=== PATIENT | female | born 1940 | race Caucasian/White ===

== ENCOUNTER 2016-12-06 14:15 | Emergency (ER) | payer MEDICARE, OTHER ==
[2016-12-06 14:59] VITALS: BP 210/88; PULSE 76; O2SAT 98
--- NOTE | 2016-12-06 15:15 | ERPHSYRPT ---
- History of Present Illness Time Seen by Provider: 12/06/16 15:06 Source: patient Exam Limitations: no limitations Patient Subjective Stated Complaint: pt states she is recieving chemo for liver cancer and on 12/04/16 she recieved a neupogen shot and had "no trouble." pt states she recieved a neupogen shot on 12/05/16 and "aches all over in her joints." Triage Nursing Assessment: pt flushed, warm, dry. pt able to walk to ER cot from wheelchair without difficulty. pt alert and oriented x3. Physician History: The patient is a 76-year-old female with her son complaining of all over body aches that it worsened since yesterday. She began a new cycle of Neupogen for colon cancer 2 days ago. In the past with Neupogen she hasn't had any problems. She thinks that the Neupogen shot has caused her body aches and pains. P took Alkseltzer and felt better last night. She denies any other problems. She denies shortness of breath, chest pain, nausea, vomiting, diarrhea. She is scheduled to have another Neupogen injection today but wants to wait until talking with her doctor who is on vacation for 2 weeks. Her oncologist is Dr. Oro and his nurse practitioner Roxi is taking calls at this time. Her past medical history is significant for colon cancer with partial colon resection, hypertension, and diabetes. Timing/Duration: yesterday Severity: moderate Modifying Factors: Improves With: nothing Associated Symptoms: other (body aches) Allergies/Adverse Reactions: No Known Drug Allergies Allergy (Verified 12/06/16 14:59) Home Medications: Acetaminophen 500 mg [Tylenol Extra Strength 500 mg] 500 mg PO DAILY PRN 12/18/13 [History] Hydrocodone/APAP 5/325 [[place] 5/325 mg] 1 tab PO Q4H PRN PRN 01/06/14 [ History] Multivitamin W-Minerals/Lutein [Centrum Silver Tablet] 1 tab PO DAILY 05/27/15 [ History] Pyridoxine HCl [Vitamin B-6] 100 mg PO BID 05/27/15 [History] Hx Tetanus, Diphtheria Vaccination/Date Given: Yes (unknown) Hx Influenza Vaccination/Date Given: No Hx Pneumococcal Vaccination/Date Given: No Immunizations Up to Date: Yes - Review of Systems Constitutional: No Fever, No Chills Eyes: No Symptoms Ears, Nose, & Throat: No Symptoms Respiratory: No Cough, No Dyspnea Cardiac: No Chest Pain, No Edema, No Syncope Abdominal/Gastrointestinal: No Abdominal Pain, No Nausea, No Vomiting, No Diarrhea Genitourinary Symptoms: No Dysuria Musculoskeletal: Joint Pain Skin: No Rash Neurological: No Dizziness, No Focal Weakness, No Sensory Changes Psychological: No Symptoms Endocrine: No Symptoms Hematologic/Lymphatic: No Symptoms Immunological/Allergic: No Symptoms All Other Systems: Reviewed and Negative - Past Medical History Pertinent Past Medical History: Yes Neurological History: No Pertinent History ENT History: Cataracts Cardiac History: No Pertinent History Respiratory History: No Pertinent History Endocrine Medical History: No Pertinent History Musculoskeletal History: No Pertinent History GI Medical History: GERD, Other History: No Pertinent History Psycho-Social History: No Pertinent History Female Reproductive Disorders: Abnormal Uterine Bleeding, Fibroids Other Medical History: colon cancer, with liver mets.Doing chemo tx at this time.,twice a month - Past Surgical History Past Surgical History: Yes Neuro Surgical History: No Pertinent History Cardiac: No Pertinent History Respiratory: No Pertinent History Gastrointestinal: Appendectomy, Colon Resection Genitourinary: No Pertinent History Musculoskeletal: No Pertinent History Female Surgical History: Hysterectomy Other Surgical History: bilateral oopherectomy, colonoscopy - Social History Smoking Status: Never smoker Exposure to second hand smoke: No Drug Use: none Patient Lives Alone: No - Nursing Vital Signs Nursing Vital Signs: Initial Vital Signs Temperature 97.6 F Temperature Source Oral Pulse Rate 76 Respiratory Rate 18 Blood Pressure [Right Arm] 210/88 Pain Intensity 8 - Physical Exam General Appearance: no apparent distress, alert Eye Exam: PERRL/EOMI, eyes nml inspection Ears, Nose, Throat Exam: normal ENT inspection, TMs normal, pharynx normal, moist mucous membranes Neck Exam: normal inspection, non-tender, supple, full range of motion Respiratory Exam: normal breath sounds, lungs clear, No respiratory distress Cardiovascular Exam: regular rate/rhythm, normal heart sounds, normal peripheral pulses Gastrointestinal/Abdomen Exam: soft, normal bowel sounds, No tenderness, No mass Pelvic Exam: not done Rectal Exam: not done Back Exam: normal inspection, normal range of motion, No CVA tenderness, No vertebral tenderness Extremity Exam: normal inspection, normal range of motion, pelvis stable Neurologic Exam: alert, oriented x 3, cooperative, normal mood/affect, nml cerebellar function, nml station & gait, sensation nml, No motor deficits Skin Exam: normal color, warm, dry, No rash Lymphatic Exam: No adenopathy SpO2 Interpretation: normal SpO2: 98 Oxygen Delivery: Room Air Ordered Tests: Active Orders 24 hr Category Date Time Status BMP Stat Lab 12/06/16 15:45 Completed CBC W DIFF Stat Lab 12/06/16 15:45 Completed Manual Differential NC Stat Lab 12/06/16 15:45 Completed UA W/RFX UR CULTURE Stat Lab 12/06/16 15:23 Uncollected Lab/Rad Data: Laboratory Result Diagrams 12/06/16 15:45 12/06/16 15:45 Laboratory Results 12/06/16 12/06/16 Range/Units 15:45 15:45 WBC 5.1 (4.0-10.5) K/mm3 RBC 3.27 L (4.1-5.4) M/mm3 Hgb 10.7 L (12.0-16.0) gm/dl Hct 33.6 L (35-47) % MCV 102.8 H (78-100) fl MCH 32.7 H (26-32) pg MCHC 31.8 L (32-36) g/dl RDW 15.2 H (11.5-14.0) % Plt Count 74 L (150-450) K/mm3 MPV 10.8 H (6-9.5) fl Sodium 140 (136-145) mEq/L Potassium 4.4 (3.5-5.1) mEq/L Chloride 107 (98-107) mEq/L Carbon Dioxide 25.1 (21-32) mEq/L Anion Gap 12.6 (5-15) MEQ/L BUN 16 (9-20) mg/dL Creatinine 1.32 H (0.55-1.30) mg/dl Estimated GFR 41 ML/MIN Glucose 295 H (70-110) MG/DL Calcium 8.7 (8.5-10.1) mg/dL - Progress Progress: unchanged Progress Note: 12/06/16 16:29 I discussed the patient and her condition and the laboratory findings with Roxi the nurse practitioner in Dr. Olguin office and she recommends that the patient have her Neupogen injection today as scheduled. For pain she can have [place], Tylenol, ibuprofen, and or Benadryl as needed. I informed the patient that her tumor markers have gone down from 981 to 256. The patient is to follow-up as scheduled on Sunday. Counseled pt/family regarding: lab results, diagnosis, need for follow-up - Departure Time of Disposition: 16:31 Departure Disposition: Home Clinical Impression: Musculoskeletal pain Condition: Stable Critical Care Time: No Additional Instructions: You have musculoskeletal pain caused by Neupogen injection. I discussed the findings with Roxi and she wants you to have year Neupogen injection today. Take your pain pills, Tylenol, ibuprofen, Ria-Lindon, or Benadryl as needed. Follow up on Sunday.
[2016-12-06 15:56] LABS: Mean Cell Volume 102.8 fl (78-100); Mean Corpuscular Hemoglobin 32.7 pg (26-32); Mean Platelet Volume 10.8 fl (6-9.5); Platelet Count 74 K/mm3 (150-450); Red Blood Count 3.27 M/mm3 (4.1-5.4); Red Cell Distribution Width 15.2 % (11.5-14.0); White Blood Count 5.1 K/mm3 (4.0-10.5)
[2016-12-06 16:11] LABS: ANION GAP 12.6 MEQ/L (5-15); Carbon Dioxide 25.1 mEq/L (21-32); Potassium 4.4 mEq/L (3.5-5.1)
[2016-12-06 16:47] LABS: ANISOCYTOSIS 1+; BAND 7 % (0.0-2.0); Eosinophil 1 % (0.00-3.0); Platelet Estimate DECREASED (NORMAL); Total Cells Counted 100; Toxic Granulation 1+
== END 2016-12-06 16:43 | disposition home or self-care (01) ==
LOC: ED 14:15
DX: M79.1 Myalgia (principal); I10 Essential (primary) hypertension; Z85.038 Personal history of other malignant neoplasm of large intestine
CPT/HCPCS: 36415; 80048; 85025; 99281

== ENCOUNTER 2017-08-07 16:02 | Observation (INO) | payer MEDICARE, OTHER ==
--- NOTE | 2017-08-07 17:19 | ERPHSYRPT ---
- History of Present Illness Time Seen by Provider: 08/07/17 16:56 Source: patient, family (son) Patient Subjective Stated Complaint: pt sent here by home health care pt unsure of shy, she states that she thinks its for dehydration, she also states her left leg hurts her, she is having home health care wrap them due to swelling Triage Nursing Assessment: pt alert, resp easy, skin w/d jaundince, edema to lower legs with coban dressing Physician History: CC: swelling Hx: 77 y/o patient of Dr Jorgensen/[facility]. She has hx of olon cancer with liver mets. She has bead implants in her liver. She has chronic swelling of the legs. She has had DVT and is now on lovenox. She had labs yesterday per her [facility]. Was told to come to the hospital for swelling and dehydration. No fever or chills. No other new symptoms. Severity: moderate Allergies/Adverse Reactions: No Known Drug Allergies Allergy (Verified 08/07/17 16:50) Home Medications: Acetaminophen 500 mg [Tylenol Extra Strength 500 mg] 500 mg PO DAILY PRN 12/18/13 [History] Multivitamin W-Minerals/Lutein [Centrum Silver Tablet] 1 tab PO DAILY 05/27/15 [ History] Pyridoxine HCl [Vitamin B-6] 100 mg PO DAILY 05/27/15 [History] Lisinopril 5 mg [Zestril 5 MG] 5 mg PO DAILY 05/17/17 [History] Rivaroxaban [Xarelto] 15 mg PO BID 05/17/17 [History] Hx Tetanus, Diphtheria Vaccination/Date Given: Yes (unknown) Hx Influenza Vaccination/Date Given: No Hx Pneumococcal Vaccination/Date Given: No Immunizations Up to Date: Yes - Review of Systems Constitutional: No Fever, No Chills Eyes: No Symptoms Ears, Nose, & Throat: No Symptoms Respiratory: No Cough, No Dyspnea Cardiac: Edema, No Chest Pain Abdominal/Gastrointestinal: No Abdominal Pain, No Vomiting Skin: Rash (blisters on feet treated with unna boots per [facility]) Neurological: No Focal Weakness, No Parasthesia All Other Systems: Reviewed and Negative - Past Medical History Pertinent Past Medical History: Yes Neurological History: No Pertinent History ENT History: Cataracts Cardiac History: Deep Vein Thrombosis, Hypertension Respiratory History: Lung Cancer Endocrine Medical History: No Pertinent History, Liver Disease Musculoskeletal History: No Pertinent History GI Medical History: Colorectal Cancer, GERD, Liver Cancer, Other History: No Pertinent History Psycho-Social History: No Pertinent History Female Reproductive Disorders: Abnormal Uterine Bleeding, Fibroids Other Medical History: colon cancer, with liver & lung mets.Doing chemo tx at this time.,twice a month - Past Surgical History Past Surgical History: Yes Neuro Surgical History: No Pertinent History Cardiac: No Pertinent History Respiratory: No Pertinent History Gastrointestinal: Appendectomy, Colon Resection Genitourinary: No Pertinent History Musculoskeletal: No Pertinent History Female Surgical History: Hysterectomy Other Surgical History: bilateral oopherectomy, colonoscopy - Social History Smoking Status: Never smoker Exposure to second hand smoke: No Drug Use: none Patient Lives Alone: No - Female History Hx Last Menstrual Period: psot Hx Now: No - Nursing Vital Signs Nursing Vital Signs: Initial Vital Signs Temperature 97.2 F 08/07/17 16:42 Pulse Rate 115 H 08/07/17 16:42 Respiratory Rate 18 08/07/17 16:42 Blood Pressure 142/81 08/07/17 16:42 O2 Sat by Pulse Oximetry 92 L 08/07/17 16:42 Pain Scale Pain Intensity 4 - Physical Exam General Appearance: alert, other (frail elderly lady) Ears, Nose, Throat Exam: normal ENT inspection, moist mucous membranes Neck Exam: normal inspection, non-tender, supple Respiratory Exam: normal breath sounds Cardiovascular Exam: regular rate/rhythm Gastrointestinal/Abdomen Exam: soft, other (mild discomfort), No distention Back Exam: normal inspection, normal range of motion Extremity Exam: other (edematous legs with unna boots on both lower legs) Neurologic Exam: alert, oriented x 3, cooperative Skin Exam: warm, dry SpO2 Interpretation: borderline oxygenation SpO2: 92 Oxygen Delivery: Room Air - Course Nursing assessment & vital signs reviewed: Yes - Radiology Exams cxr X-ray Interpretation: Reviewed by me (aging chest, port a cath, left effusion, right A/I) Ordered Tests: Active Orders 24 hr Category Date Time Status Clean Catch Urine Specimen STAT Care 08/07/17 18:44 Active IV Insertion STAT Care 08/07/17 17:06 Active CHEST 1 VIEW (PORTABLE) Stat Exams 08/07/17 17:10 Taken BMP Stat Lab 08/07/17 17:30 Completed CBC W DIFF Stat Lab 08/07/17 17:30 Completed Hepatic Function Panel Stat Lab 08/07/17 17:30 Completed Manual Differential NC Stat Lab 08/07/17 17:30 Completed PROTIME WITH INR Stat Lab 08/07/17 17:30 Completed UA W/RFX UR CULTURE Stat Lab 08/07/17 18:44 Ordered Lab/Rad Data: Laboratory Result Diagrams 08/07/17 17:30 08/07/17 17:30 Laboratory Results 08/07/17 08/07/17 08/07/17 Range/Units 17:30 17:30 17:30 WBC 6.2 (4.0-10.5) K/mm3 RBC 3.09 L (4.1-5.4) M/mm3 Hgb 11.1 L (12.0-16.0) gm/dl Hct 33.9 L (35-47) % MCV 109.7 H (78-100) fl MCH 35.9 H (26-32) pg MCHC 32.7 (32-36) g/dl RDW 18.0 H (11.5-14.0) % Plt Count 89 L (150-450) K/mm3 MPV 13.0 H (6-9.5) fl Segmented Neutrophils 82 H (36.0-66.0) % Lymphocytes (Manual) 13 L (24-44) % Monocytes (Manual) 5 (0.0-12.0) % Differential Comment ABNORMAL Platelet Estimate DECREASED (NORMAL) Anisocytosis 1+ INR 1.34 (0.8-3.0) Sodium 138 (136-145) mEq/L Potassium 3.4 L (3.5-5.1) mEq/L Chloride 108 H (98-107) mEq/L Carbon Dioxide 19.5 L (21-32) mEq/L Anion Gap 14.0 (5-15) MEQ/L BUN 17 (9-20) mg/dL Creatinine 1.23 (0.55-1.30) mg/dl Estimated GFR 45 ML/MIN Glucose 107 (70-110) MG/DL Calcium 7.9 L (8.5-10.1) mg/dL Total Bilirubin 1.20 H (0.2-1.0) mg/dL Direct Bilirubin 0.66 H (0.0-0.2) MG/DL AST 45 H (15-37) U/L ALT < 6 L (12-78) U/L Alkaline Phosphatase 103 (46-116) U/L Serum Total Protein 6.2 L (6.4-8.2) gm/dL Albumin 1.2 L (3.4-5.0) g/dL - Progress Progress Note: 08/07/17 18:44 Pt stable here. Will check UA. Called Dr Jorgensen who was worried about her low bicarb which is worse. She is worried about dehydration. Son reports some diarrhea. Dr Jorgensen advised obs and social service consult. Will give gentle IV hydration. Discussed with .: Joslyn Will see patient in: hospital (observation) Counseled pt/family regarding: lab results, diagnosis, need for follow-up, rad results - Departure Time of Disposition: 18:47 Departure Disposition: Observation Clinical Impression: Diabetes mellitus type 2, Colon cancer metastasized to liver, Lower extremity edema, Dehydration Condition: Fair Critical Care Time: No Referrals: AN JORGENSEN [Primary Care Provider] -
[2017-08-07 17:43] LABS: Granulocyte Absolute (ANC) 4.99 (1.4-6.9); Hematocrit 33.9 % (35-47); Hemoglobin 11.1 gm/dl (12.0-16.0); Mean Cell Volume 109.7 fl (78-100); Mean Corpuscular Hemoglobin 35.9 pg (26-32); Mean Corpuscular Hgb Concent. 32.7 g/dl (32-36); Platelet Count 89 K/mm3 (150-450); Red Blood Count 3.09 M/mm3 (4.1-5.4); White Blood Count 6.2 K/mm3 (4.0-10.5)
[2017-08-07 17:55] LABS: INR 1.34 (0.8-3.0)
[2017-08-07 18:02] LABS: ALBUMIN 1.2 g/dL (3.4-5.0); ALKALINE PHOSPHATASE 103 U/L (46-116); BLOOD UREA NITROGEN 17 mg/dL (9-20); CHLORIDE 108 mEq/L (98-107); Calcium 7.9 mg/dL (8.5-10.1); Carbon Dioxide 19.5 mEq/L (21-32); Creatinine 1 1.23 mg/dl (0.55-1.30); Direct Bilirubin 0.66 MG/DL (0.0-0.2); EST GLOMERULAR FILTRATION RATE 45 ML/MIN; Glucose 107 MG/DL (70-110); Potassium 3.4 mEq/L (3.5-5.1); SGOT/AST 45 U/L (15-37); SODIUM 138 mEq/L (136-145); Total Protein 6.2 gm/dL (6.4-8.2)
[2017-08-07 18:13] LABS: SGPT/ALT < 6 U/L (12-78)
[2017-08-07 18:29] LABS: ANISOCYTOSIS 1+; Lymphocytes 13 % (24-44); Monocyte 5 % (0.0-12.0); Neutrophils 82 % (36.0-66.0); Platelet Estimate DECREASED (NORMAL); Total Cells Counted 100
[2017-08-07 19:31] LABS: Appearance HAZY (CLEAR); Bilirubin SMALL (NEGATIVE); Glucose NEGATIVE (NEGATIVE); Ketones NEGATIVE (NEGATIVE); Leukocyte Esterase 2+ (NEGATIVE); Nitrite NEGATIVE (NEGATIVE); Protein,Urine Dip 1+ (Negative); Urobilinogen NORMAL mg/dL (0-1)
[2017-08-07 19:32] LABS: Bacteria FEW /HPF (NEGATIVE); Epithelial Cells FEW /HPF (FEW)
[2017-08-07] MEDS ORDERED: Sodium Chloride 0.9% W/ 20 mEq KCl/LITER 1,000 ML IV SCH (21:04)
[2017-08-07] MEDS ORDERED: NovoLOG Insulin SQ PRN (21:04)
[2017-08-08] MEDS ORDERED: ENOXAPARIN SODIUM SQ SCH (01:00)
[2017-08-08 06:13] LABS: ALBUMIN 1.1 g/dL (3.4-5.0); ALKALINE PHOSPHATASE 94 U/L (46-116); ANION GAP 12.7 MEQ/L (5-15); BLOOD UREA NITROGEN 17 mg/dL (9-20); CHLORIDE 110 mEq/L (98-107); Calcium 7.8 mg/dL (8.5-10.1); Carbon Dioxide 21.6 mEq/L (21-32); Creatinine 1 1.14 mg/dl (0.55-1.30); EST GLOMERULAR FILTRATION RATE 49 ML/MIN; Glucose 93 MG/DL (70-110); Potassium 3.7 mEq/L (3.5-5.1); SGOT/AST 43 U/L (15-37); SODIUM 141 mEq/L (136-145); Total Protein 5.8 gm/dL (6.4-8.2)
[2017-08-08 06:37] LABS: SGPT/ALT < 5 U/L (12-78)
--- NOTE | 2017-08-08 09:01 | PCM.SSS ---
History of Present Illness - Chief Complaint Chief Complaint: Dehydration History of Present Illness: is a 77 year old female pt of mine from [facility] who is being treated by Dr. Meek for colon ca with liver mets. She had a BMP drawn yesterday with Co2 under 20 so was called to come to ER for further evaluation & dehydration. She had CO2 of 19 in the ER, labs otherwise stable. She states she tries to drink but it's mostly tea, coffee, and a soda a day. She has recently been in [facility] for 5 days, 1 week ago, for what sounds like cellulitis to the LE and was treated by Dr. Martins. She is now wearing Delphine boots and states the legs are better. She also had a DVT recently and is on lovenox at home. Has been c/o some L groin pain. - Review of Systems Respiratory: Short Of Breath (prior to previous hosp admission) Abdominal/Gastrointestinal: Diarrhea (did have diarrhea but it resolved) Musculoskeletal: Other (edema), No Fall Skin: Cellulitis All Other Systems: Reviewed and Negative Medications & Allergies Home Medications: Home Medication List Multivitamin W-Minerals/Lutein [Centrum Silver Tablet] 1 tab PO DAILY 05/27/15 [ History Confirmed 08/07/17] Pyridoxine HCl [Vitamin B-6] 100 mg PO DAILY 05/27/15 [History Confirmed ] Lisinopril 5 mg [Zestril 5 MG] 5 mg PO DAILY 05/17/17 [History Confirmed 08/07/17] Blood Sugar Diagnostic [One Touch Verio] 1 each MC DAILY #0 ea 05/21/17 [Rx Confirmed 08/07/17] Enoxaparin Sodium [Enoxaparin Sodium] 100 mg SQ Q24H22 #30 syringe 05/21/17 [ Rx Confirmed 08/07/17] Glipizide [Glipizide ER] 2.5 mg PO DAILY #30 tab.er.24 05/21/17 [Rx Confirmed ] Lancets [One Touch Lancets] 1 each MC DAILY #30 each 05/21/17 [Rx Confirmed ] Cephalexin Mh 500 mg [Keflex 500 mg] 500 mg PO TID 08/08/17 [History Confirmed 08/08/17] Allergies/Adverse Reactions: Allergies Allergy/AdvReac Type Severity Reaction Status Date / Time No Known Drug Allergies Allergy Verified 08/07/17 22:43 - Past Medical History Past Medical History: Yes Neurological History: No Pertinent History ENT History: Cataracts Cardiac History: Deep Vein Thrombosis, Hypertension Respiratory History: Lung Cancer Endocrine Medical History: No Pertinent History, Liver Disease Musculoskelatal History: No Pertinent History GI Medical History: Colorectal Cancer, GERD, Liver Cancer, Other History: No Pertinent History Pyscho-Social History: No Pertinent History Reproductive Disorders: Abnormal Uterine Bleeding, Fibroids Comment: colon cancer, with liver & lung mets.Doing chemo tx at this time., twice a month. - Female History Hx Last Menstrual Period: psot Are you now?: No - Past Surgical History Past Surgical History: Yes Neuro Surgical History: No Pertinent History Cardiac History: No Pertinent History Respiratory Surgery: No Pertinent History GI Surgical History: Appendectomy, Colon Resection Genitourinary Surgical Hx: No Pertinent History Musculskeletal Surgical Hx: No Pertinent History Female Surgical History: Hysterectomy Other Surgical History: bilateral oopherectomy, colonoscopy - Social History Smoking Status: Never smoker Exposure to second hand smoke: No Alcohol: None Drug Use: none - Physical Exam Vital Signs: Vital Signs - 24 hr Temp Pulse Resp BP Pulse Ox 08/08/17 07:44 97.4 F 75 17 123/59 92 L 08/08/17 04:15 98.0 F 76 20 124/63 96 08/07/17 22:00 97.7 F 86 22 162/70 95 08/07/17 21:15 82 20 96 08/07/17 19:08 88 18 137/59 93 L 08/07/17 18:48 92 L 08/07/17 18:24 90 16 135/72 93 L 08/07/17 18:00 81 16 120/71 92 L 08/07/17 16:42 97.2 F 115 H 18 142/81 92 L General Appearance: no apparent distress, alert Neurologic Exam: oriented x 3, cooperative Ears, Nose, Throat Exam: moist mucous membranes Neck Exam: normal inspection Respiratory Exam: normal breath sounds, lungs clear, No crackles/rales, No rhonchi, No wheezing Cardiovascular Exam: regular rate/rhythm, normal heart sounds, No murmur Gastrointestinal/Abdomen Exam: soft, distention, other (hypoactive bowel sounds) , No tenderness Extremity Exam: other (LE wrapped bilat) Skin Exam: normal color, warm, dry, No rash Results - Labs Lab/Micro Results: Accuchecks Accucheck Value: 113 Lab Results-Last 24 Hours 08/08/17 Range/Units 05:20 Sodium 141 (136-145) mEq/L Potassium 3.7 (3.5-5.1) mEq/L Chloride 110 H (98-107) mEq/L Carbon Dioxide 21.6 (21-32) mEq/L Anion Gap 12.7 (5-15) MEQ/L BUN 17 (9-20) mg/dL Creatinine 1.14 (0.55-1.30) mg/dl Estimated GFR 49 ML/MIN Glucose 93 (70-110) MG/DL Calcium 7.8 L (8.5-10.1) mg/dL Total Bilirubin 1.10 H (0.2-1.0) mg/dL AST 43 H (15-37) U/L ALT < 5 L (12-78) U/L Alkaline Phosphatase 94 (46-116) U/L Serum Total Protein 5.8 L (6.4-8.2) gm/dL Albumin 1.1 L (3.4-5.0) g/dL Accuchecks Accucheck Value: 113 Assessment/Plan (1) Dehydration Current Visit: Yes Status: Acute Assessment & Plan: She is doing well, home today. Code(s): E86.0 - DEHYDRATION (2) Colon cancer metastasized to liver Current Visit: Yes Status: Chronic Code(s): C18.9 - MALIGNANT NEOPLASM OF COLON, UNSPECIFIED; C78.7 - SECONDARY MALIG NEOPLASM OF LIVER AND INTRAHEPATIC BILE DUCT (3) Diabetes mellitus type 2 Current Visit: Yes Status: Chronic Code(s): E11.9 - TYPE 2 DIABETES MELLITUS WITHOUT COMPLICATIONS (4) Lower extremity edema Current Visit: Yes Status: Chronic Assessment & Plan: re-wrap the LE while here Code(s): R60.0 - LOCALIZED EDEMA (5) Hip pain Current Visit: Yes Status: Acute Qualifiers: Laterality: left Qualified Code(s): M25.552 - Pain in left hip Assessment & Plan: XR the hip while she's here. Code(s): M25.559 - PAIN IN UNSPECIFIED HIP Hospital Summary - Hospital Course Hospital Course: Pt with metastatic colon ca and LE edema admitted with dehydration, labs better in the morning. She is working toward rehab placement in [place], [place]. Hip XR done for L groin pain. Recently had DVT and on lovenox. Unna boots to be re- wrapped before she goes home. - Vitals & Intake/Output Vital Signs: Vital Signs Temperature 97.4 F 08/08/17 07:44 Pulse Rate 75 08/08/17 07:44 Respiratory Rate 17 08/08/17 07:44 Blood Pressure 123/59 08/08/17 07:44 O2 Sat by Pulse Oximetry 92 L 08/08/17 07:44 Intake & Output: Intake & Output 08/05/17 08/06/17 08/07/17 08/08/17 11:59 11:59 11:59 11:59 Intake Total 761 Balance 761 Weight 77.5 kg - Lab Result Diagrams: 08/07/17 17:30 08/08/17 05:20 Lab Results-Last 24 Hrs: Accuchecks Accucheck Value: 113 Lab Results-Last 24 Hours 08/08/17 Range/Units 05:20 Sodium 141 (136-145) mEq/L Potassium 3.7 (3.5-5.1) mEq/L Chloride 110 H (98-107) mEq/L Carbon Dioxide 21.6 (21-32) mEq/L Anion Gap 12.7 (5-15) MEQ/L BUN 17 (9-20) mg/dL Creatinine 1.14 (0.55-1.30) mg/dl Estimated GFR 49 ML/MIN Glucose 93 (70-110) MG/DL Calcium 7.8 L (8.5-10.1) mg/dL Total Bilirubin 1.10 H (0.2-1.0) mg/dL AST 43 H (15-37) U/L ALT < 5 L (12-78) U/L Alkaline Phosphatase 94 (46-116) U/L Serum Total Protein 5.8 L (6.4-8.2) gm/dL Albumin 1.1 L (3.4-5.0) g/dL Micro Results-Entire Visit: Accuchecks Accucheck Value: 113 - Discharge Disposition: Home, Self-Care Condition: Stable Prescriptions: Continue Multivitamin W-Minerals/Lutein [Centrum Silver Tablet] 1 tab PO DAILY Pyridoxine HCl [Vitamin B-6] 100 mg PO DAILY Lisinopril 5 mg [Zestril 5 MG] 5 mg PO DAILY Glipizide [Glipizide ER] 2.5 mg PO DAILY #30 tab.er.24 Enoxaparin Sodium [Enoxaparin Sodium] 100 mg SQ Q24H22 #30 syringe Lancets [One Touch Lancets] 1 each MC DAILY #30 each Blood Sugar Diagnostic [One Touch Verio] 1 each MC DAILY #0 ea Cephalexin Mh 500 mg [Keflex 500 mg] 500 mg PO TID Follow up with: AN MACE [Primary Care Provider] -
--- NOTE | 2017-08-08 09:20 | XRAY ---
Indication: Bilateral leg swelling. Comparison: July 06, 2015. Portable chest underinflated today with new bibasilar infiltrates/atelectasis and small left effusion. Heart is not enlarged for portable technique. Stable right-sided Port-A-Cath, osteopenia, and mild bony degenerative changes.
[2017-08-08] MEDS ORDERED: LANCETS MC SCH (10:00)
[2017-08-08] MEDS ORDERED: BLOOD SUGAR DIAGNOSTIC MC SCH (10:00)
[2017-08-08] MEDS ORDERED: KEFLEX 500 MG PO SCH (10:00)
[2017-08-08] MEDS ORDERED: Glucotrol Xl 2.5 MG PO SCH (10:00)
[2017-08-08] MEDS ORDERED: Zestril 5 MG PO SCH (10:00)
[2017-08-08 11:34] VITALS: BP 118/58; PULSE 80; O2SAT 93
== END 2017-08-08 15:00 ==
LOC: ED 16:02 → MED SURG 20:38
PROVIDERS: ADMIT Family Medicine; ATTEND Family Medicine
DX: E86.0 Dehydration (principal); C18.9 Malignant neoplasm of colon, unspecified; C78.7 Secondary malignant neoplasm of liver and intrahepatic bile duct; R60.0 Localized edema; M25.552 Pain in left hip; M25.559 Pain in unspecified hip; Z79.899 Other long term (current) drug therapy; I10 Essential (primary) hypertension
CPT/HCPCS: 36000; 36415; 71045; 80048; 80053; 80076; 81000; 82962; 85025; 85610; 87077; 87086; 94760; 96360; 96361; 99285; G0378; J1650; A9270-GY